=== PATIENT | female | born 2000 | race Caucasian/White ===

== ENCOUNTER 2020-07-30 07:04 | Outpatient (REF) | payer OTHER, SELFPAY | END 2020-07-30 07:05 | disposition home or self-care (01) | LOC: HO.WFDLDS 07:04 | PROVIDERS: Visit Provider Internal Medicine | DX: Z20.822 Contact with and (suspected) exposure to COVID-19 (principal) | CPT/HCPCS: 36415; C9803; U0003 ==

== ENCOUNTER 2022-09-01 12:08 | Outpatient (REF) | payer SELFPAY ==
[2022-09-01 12:59] LABS: Influenza A PCR NEGATIVE (Negative); Influenza B PCR NEGATIVE (Negative); Resp Syncy Virus RNA Qual PCR NEGATIVE (Negative); SARS COV2 PCR INHOUSE NEGATIVE (Negative)
== END 2022-09-01 12:09 | disposition home or self-care (01) ==
LOC: HO.LNP 12:08
PROVIDERS: Visit Provider Nurse Practitioner Family
DX: Z20.822 Contact with and (suspected) exposure to COVID-19 (principal); J02.9 Acute pharyngitis, unspecified
CPT/HCPCS: 0241U